=== PATIENT | male | born 1960 | race Caucasian/White ===

== ENCOUNTER → 2023-05-01 08:29 | Outpatient (CLI) | payer OTHER, SELFPAY ==
--- NOTE | ~2023-05-01 | XR_ITS ---
EXAMINATION: XR abdomen/kub 1V DATE: 05/01/2023 09:24 INDICATION: Kidney stone. TECHNIQUE: A supine view of the abdomen on 2 radiographs was obtained. COMPARISON: None. FINDINGS: There are no dilated loops of bowel. The kidneys are obscured by bowel. There are 4 mm and 2 mm stones in right kidney. There are 2 densities measuring up to 11 mm overlying left kidney that m ay be stones. IMPRESSION: 1. Bilateral kidney stones. Reviewed, dictated and finalized at location A. IMPRESSION: 1. Bilateral kidney stones.
== END ==
DX: N20.0 Calculus of kidney (principal)
CPT/HCPCS: 74018

== ENCOUNTER 2023-08-06 08:50 | Emergency (ER) | payer OTHER, SELFPAY ==
--- NOTE | ~2023-08-06 | XR_ITS ---
EXAMINATION: XR hip LT min 3V w AP pelvis DATE: 08/06/2023 09:28 INDICATION: Left hip pain. Fall. TECHNIQUE: An anteroposterior view of the pelvis and 3 views of left hip were obtained. COMPARISON: None. FINDINGS: Bone alignment is normal. No fracture. There is at least moderate lumbar spondylosis. There is mild right hip osteoarthritis and moderate left hip osteoarthritis. IMPRESSION: 1. Mild right hip osteoarthritis and moderate left hip osteoarthritis. Reviewed, dictated and finalized at location E. CIL ON AGING DIRECTOR
[2023-08-06 09:02] VITALS: BP 158/83; PULSE 76; RESP 18; TEMP 36.4; O2SAT 99
--- NOTE | 2023-08-06 09:52 | ED.GENADULT ---
HPI - General Adult General Chief complaint: Extremity Injury, Lower Stated complaint: wc- left hip injury Time Seen by Provider: 08/06/23 09:30 Source: patient, family, RN notes reviewed and old records reviewed Mode of arrival: ambulatory Limitations: no limitations History of Present Illness HPI narrative: 63-year-old presents to [facility] with accompanied by with complaints of acute pain to his left hip and groin since yesterday when he got out of his truck at work and step broke causing him to fall about 2 foot onto left hip. Patient reports that the pain has gotten worse over night with increased pain with ambulation. Patient reports that he has been taking Ibuprofen with minimal decreased in his discomfort.Gait steady and cautious with ambulation with noted pain with ambulation. MD complaint: left hip pain Onset (ago): day(s) (day 2 of symptoms) Location: left and lower extremity (hip and groin) Severity: moderate (to severe) Severity scale (1-10): 5 (5 at rest, 8 with ambulation) Treatments prior to arrival: NSAID Related Data Home Medications Medication Instructions Recorded Confirmed atenolol 25 mg tablet 25 mg PO BID 08/06/23 08/06/23 lovastatin 20 mg tablet 20 mg PO DAILY 08/06/23 08/06/23 Allergies Allergy/AdvReac Type Severity Reaction Status Date / Time No Known Allergies Allergy Verified 08/06/23 09:09 Review of Systems Review of Systems: CONSTITUTIONAL: Denies fever, chills, or sweats. EYES: Denies visual changes, redness, or discharge. ENT: Denies rhinorrhea, congestion, sore throat, or otalgia. CARDIOVASCULAR: Denies chest pain, palpitations, or edema. RESPIRATORY: Denies cough or dyspnea. GASTROINTESTINAL: Denies abdominal pain, nausea, vomiting, or diarrhea. GENITOURINARY: Denies dysuria or hematuria. SKIN: Denies rash or itching. MUSCULOSKELETAL: Denies back pain,positive for left hip pain radiates to left groin , or myalgia. NEUROLOGIC: Denies headache, numbness, or weakness. PSYCHIATRIC: Denies anxiety or depression. All systems reviewed & are unremarkable except as noted in HPI and below PMFSH Past Medical History Medical History (Updated 08/07/23 @ 11:48 by Ashley Fernández NP) Elevated cholesterol Hypertension Kidney stone Surgical History Surgical History (Updated 08/06/23 @ 10:32 by Ashley Fernández NP) H/O arthroscopy of left knee H/O lithotripsy Social History Social History (Updated 08/06/23 @ 20:30 by Ashley Fernández NP) Smoking status: Current every day smoker Tobacco type: cigarettes Alcohol intake: current Alcohol use details: rare Substance use type: does not use Living arrangements: with family Gender identity (if verbalized by the patient): Male Comments At time of signature, agree with nursing past medical, surgical, social and family history. There is no relevant family history pertinent to the presenting complaint Exam Narrative: GENERAL: Well-appearing, well-nourished, and in some acute distress. HEAD: Normocephalic, atraumatic. EYES: PERRLA and EOMI. ENT: Nares clear, no rhinorrhea or epistaxis. Mucous membranes moist.TM's normal throat with no swelling NECK: Supple. no lymphadenopathy CHEST: Clear to auscultation. No respiratory distress. SAO2 99% on room air HEART: Regular rate and rhythm. No murmur heard. Normal peripheral pulses. ABDOMEN: Soft, nontender, nondistended, normal active bowel sounds. EXTREMITIES: Normal range of motion. No edema.Exception noted to pain to left hip radiating into groin from fall yesterday. Patient has palpable pain to hip region, no bruising noted increase pain with ambulation, pain at rest 5/10. Patient reports no tingling or numbness to his left leg, pulses palpable left extremity. Patient has guarded gait with ambulation with increased pain. SKIN: Warm, dry, no rash. NEURO: No focal deficits. Alert and oriented x3. Course Course Emergency Course: Patient is aware of diagnosis, un
== END 2023-08-06 10:23 | disposition home or self-care (01) ==
LOC: EXPBETH 08:59
PROVIDERS: Emergency Provider Registered Nurse
DX: M25.552 Pain in left hip (principal); V48.4XXA Person boarding or alighting a car injured in noncollision transport accident, initial encounter; Y99.0 Civilian activity done for income or pay; E78.00 Pure hypercholesterolemia, unspecified; I10 Essential (primary) hypertension; F17.210 Nicotine dependence, cigarettes, uncomplicated
CPT/HCPCS: 73502; 99213; G0463

== ENCOUNTER 2023-11-06 07:37 | Outpatient (CLI) | payer OTHER, SELFPAY ==
--- NOTE | ~2023-11-06 | XR_ITS ---
XR abdomen/kub 1V 11/06/2023 07:58 Indication: Renal stone Procedure: KUB Comparison: 05/01/2023 Findings: There are bilateral renal stones. Bowel gas pattern nonobstructive. Lung bases unremarkable . Advanced lumbar spondylosis. Generalized osteopenia. There is moderate osteoarthritis of the hips. Impression: 1: Bilateral nephrolithiasis. Reviewed, dictated and finalized at location A. Impression: 1: Bilateral nephrolithiasis.
== END 2023-11-06 07:38 ==
PROVIDERS: PCP Urology; Visit Provider Urology
DX: N20.0 Calculus of kidney (principal)
CPT/HCPCS: 74018

== ENCOUNTER 2024-06-13 15:47 | Outpatient (CLI) | payer OTHER, SELFPAY ==
--- NOTE | ~2024-06-13 | XR_ITS ---
EXAMINATION: XR abdomen/kub 1V DATE: 06/13/2024 16:00 INDICATION: Calcium kidney stone. TECHNIQUE: A supine view of the abdomen on 3 radiographs was obtained. COMPARISON: Abdomen radiographs 11/06/2023 FINDINGS: There are no dilated loops of bowel. There is a moderate volume of stool in the colon. The bowel obscures the kidneys. There is a 4 mm stone right kidney upper pole. IMPRESSION: 1. Right kidney stone. Reviewed, dictated and finalized at location A. OR RESEARCH SCIENTIST IMPRESSION: 1. Right kidney stone.
== END 2024-06-13 15:48 | disposition home or self-care (01) ==
LOC: MICIMG 15:49
PROVIDERS: PCP Urology; Visit Provider Urology
DX: N20.0 Calculus of kidney (principal)
CPT/HCPCS: 74018

== ENCOUNTER 2025-06-20 11:51 | Outpatient (CLI) | payer OTHER, SELFPAY ==
--- NOTE | ~2025-06-20 | XR_ITS ---
EXAMINATION: XR abdomen/kub 1V, 06/20/2025 12:05 ASSISTANT SOFTBALL COACH HISTORY: Calculus of kidney; YEARLY CHECK UP COMPARISON: No comparisons available. Technique: 3 view. Findings: Moderate fecal content noted, no dilated bowel loops, evaluation of the left kidney is severely limited. Right kidney superior pole 2 mm calculus. No acute osseous abnormality. Impression: 1. Right renal calculus. Reviewed, dictated and finalized at location P. STANT SOFTBALL COACH Impression: 1. Right renal calculus.
== END 2025-06-20 11:52 | disposition home or self-care (01) ==
LOC: MICIMG 11:52
PROVIDERS: PCP Urology; Visit Provider Urology
DX: N20.0 Calculus of kidney (principal)
CPT/HCPCS: 74018